=== PATIENT | female | born 1995 | race Two or more races ===

== ENCOUNTER 2019-01-05 15:29 | Emergency (ER) | payer SELFPAY ==
[2019-01-05 16:13] LABS: ABSOLUTE EOSINOPHILS # (AUTO) 0.1 10^3/uL (0.0-0.6); ABSOLUTE LYMPHOCYTES (AUTO) 1.8 10^3/uL (0.5-4.7); ABSOLUTE MONOCYTES (AUTO) 0.4 10^3/uL (0.1-1.4); ABSOLUTE NEUT (AUTO) 3.1 10^3/uL (1.7-8.2); BASOPHILS % (AUTO) 0.4 % (0-2); EOSINOPHILS % (AUTO) 2.3 % (0-6); HEMATOCRIT 40.5 % (36.0-47.0); HEMOGLOBIN 13.6 g/dL (12.0-15.5); LYMPHOCYTES % (AUTO) 32.7 % (13-45); MEAN CORPUSCULAR HEMOGLOBIN 28.3 pg (27.0-33.4); MEAN CORPUSCULAR HGB CONC 33.5 g/dL (32.0-36.0); MEAN CORPUSCULAR VOLUME 85 fl (80-97); MONOCYTES % (AUTO) 7.4 % (3-13); PLATELET COUNT 240 10^3/uL (150-450); RED BLOOD COUNT 4.79 10^6/uL (3.72-5.28); RED CELL DISTRIBUTION WIDTH 13.5 % (11.5-14.0); SEGMENTED NEUTROPHILS % (AUTO) 57.2 % (42-78); TOTAL CELLS COUNTED % (AUTO) 100 %; WHITE BLOOD COUNT 5.5 10^3/uL (4.0-10.5)
[2019-01-05 16:44] LABS: ALANINE AMINOTRANSFERASE 15 U/L (9-52); ALBUMIN 4.5 g/dL (3.5-5.0); ALKALINE PHOSPHATASE 83 U/L (38-126); ANION GAP 13 (5-19); ASPARTATE AMINO TRANSFERASE 15 U/L (14-36); BILIRUBIN,DIRECT 0.2 mg/dL (0.0-0.4); BILIRUBIN,TOTAL 0.5 mg/dL (0.2-1.3); BLOOD UREA NITROGEN 12 mg/dL (7-20); CALCIUM 9.3 mg/dL (8.4-10.2); CARBON DIOXIDE 24 mmol/L (22-30); CHLORIDE 107 mmol/L (98-107); CREATINE KINASE 45 U/L (30-135); GLUCOSE 118 mg/dL (75-110); POTASSIUM 3.7 mmol/L (3.6-5.0); SODIUM 143.5 mmol/L (137-145); TOTAL PROTEIN 7.7 g/dL (6.3-8.2)
[2019-01-05 16:57] LABS: CREATINE KINASE MB < 0.22 ng/mL (<4.55); TROPONIN I < 0.012 ng/mL
[2019-01-05 17:01] LABS: APPEARANCE,URINE CLEAR; BILIRUBIN,URINE NEGATIVE (NEGATIVE); COLOR,URINE STRAW; GLUCOSE, URINE NEGATIVE (NEGATIVE); KETONES,URINE NEGATIVE (NEGATIVE); LEUKOCYTE ESTERASE,URINE NEGATIVE (NEGATIVE); NITRITE,URINE NEGATIVE (NEGATIVE); PROTEIN,URINE NEGATIVE (NEGATIVE); URINE SPECIFIC GRAVITY 1.009; UROBILINOGEN,URINE NEGATIVE mg/dL (<2.0)
[2019-01-05 17:15] LABS: URINE AMPHETAMINES SCREEN NEGATIVE; URINE BARBITURATES SCREEN NEGATIVE; URINE BENZODIAZEPINES SCREEN NEGATIVE; URINE COCAINE SCREEN NEGATIVE; URINE MARIJUANA (THC) SCREEN NEGATIVE; URINE METHADONE SCREEN NEGATIVE; URINE PHENCYCLIDINE SCREEN NEGATIVE
--- NOTE | 2019-01-05 18:35 | ER Document Report ---
ED Medical Screen (RME) - General Chief Complaint: Abdominal Pain Stated Complaint: POSSIBLE SYNCOPE Time Seen by Provider: 01/05/19 18:09 Mode of Arrival: Medic Information source: Emergency Med Personnel Notes: Patient presents to the emergency department via EMS. Patient is primarily Niuean-speaking. Patient is very hesitant to answer questions. EMS reports patient was in a very hot house and they were given a report that she fell and hit her head. Questionable seizures because EMS noted she was incontinent of urine. RN at bedside reports she was not incontinent of urine patient does not answer question. Surekha is at the bedside I have greeted and performed a rapid initial assessment of this patient. A comprehensive ED assessment and evaluation of the patient, analysis of test results and completion of the medical decision making process will be conducted by additional ED providers. Dictation of this chart was performed using voice recognition software; therefore, there may be some unintended grammatical errors. TRAVEL OUTSIDE OF THE [place] IN LAST 30 DAYS: No - HPI Onset: Just prior to arrival - Related Data Allergies/Adverse Reactions: No Known Allergies Allergy (Verified 01/05/19 18:40) Physical Exam - Vital signs Vitals: Pulse Ox 100 01/05/19 15:41 Course - Vital Signs Vital signs: Temp Pulse Resp BP Pulse Ox 87 21 H 122/77 99 01/05/19 16:20 01/05/19 20:22 01/05/19 20:22 01/05/19 20:22 - Laboratory Result Diagrams: 01/05/19 15:55 01/05/19 15:55 Laboratory results interpreted by me: 01/05/19 15:55 Glucose 118 H
--- NOTE | 2019-01-05 20:01 | RADIOLOGY REPORT (SQ) ---
EXAM DESCRIPTION: CT HEAD WITHOUT COMPLETED DATE/TIME: 01/05/2019 7:49 pm REASON FOR STUDY: head injury COMPARISON: None. TECHNIQUE: Axial images acquired through the brain without intravenous contrast. Images reviewed wi th bone, brain and subdural windows. Images stored on PACS. All CT scanners at this facility use dose modulation, iterative reconstruction, and/or weight based d osing when appropriate to reduce radiation dose to as low as reasonably achievable (ALARA). [facility]: Dose Right [facility]: CareDose [facility]: Dose Right [facility]: Teradose 4D [facility]: Avinger RADIATION DOSE: CT Rad equipment meets quality standard of care and radiation dose reduction techniq ues were employed. CTDIvol: 53.2 mGy. DLP: 1070 mGy-cm. mGy. LIMITATIONS: None. FINDINGS: VENTRICLES: Normal size and contour. CEREBRUM: No masses. No hemorrhage. No midline shift. No evidence for acute infarction. Normal gra y/white matter differentiation. No areas of low density in the white matter. CEREBELLUM: No masses. No hemorrhage. No alteration of density. No evidence for acute infarction. EXTRAAXIAL SPACES: No fluid collections. No masses. ORBITS AND GLOBE: No intra- or extraconal masses. Normal contour of globe without masses. CALVARIUM: No fracture. PARANASAL SINUSES: No fluid or mucosal thickening. SOFT TISSUES: No mass or hematoma. OTHER: No other significant finding. IMPRESSION: No acute intracranial findings. EVIDENCE OF ACUTE STROKE: NO. COMMENT: Quality ID # [id number]: Final reports with documentation of one or more dose reduction techniques (e.g., Automated exposure control, adjustment of the mA and/or kV according to patient size, use of iterative reconstruction technique) TECHNICAL DOCUMENTATION: JOB ID: [id number] 2010 [employer]- All Rights Reserved Reading location - IP/workstation name: [email or web address]
--- NOTE | 2019-01-05 20:07 | EKG REPORT ---
SEVERITY:- BORDERLINE ECG - SINUS RHYTHM BORDERLINE T ABNORMALITIES, ANTERIOR LEADS : Confirmed by: Arely Cordero MD 05-Jan-2019 20:06:39
[2019-01-05] MEDS ORDERED: NORMAL SALINE 1000 ML 1,000 ML IV ONE (20:08)
[2019-01-05] MEDS ORDERED: ONDANSETRON HCL INJ/PF 4 MG/2 ML SDV IV ONE (20:08)
--- NOTE | 2019-01-05 20:08 | ER Document Report ---
ED General - General Chief Complaint: Abdominal Pain Stated Complaint: POSSIBLE SYNCOPE Time Seen by Provider: 01/05/19 18:09 Mode of Arrival: Medic Information source: Patient Notes: History is provided by the patient and the with the use of TONI [id number] This is a 23-year-old female with no significant medical problems that states that she has not felt very well for the last few days and was feeling weak and dizzy and the neighbor came over the house and they began to go to the doctors and she fainted. She does report some epigastric discomfort. Last normal menstrual period: December 18 Medicines: None No known drug allergies Past surgical history: None Family history: No history of early heart disease TRAVEL OUTSIDE OF THE [place] IN LAST 30 DAYS: No - HPI Onset: Last week Onset/Duration: Gradual Quality of pain: Dull Severity: Mild Pain Level: 1 Associated symptoms: Other - Epigastric pain, dizziness, weakness. denies: Chest pain, Fever, Shortness of breath Exacerbated by: Denies Relieved by: Denies Similar symptoms previously: No Recently seen / treated by doctor: No - Related Data Allergies/Adverse Reactions: No Known Allergies Allergy (Verified 01/05/19 18:40) Past Medical History - General Information source: Patient, Emergency Med Personnel Last Menstrual Period: History via official court interpreter - Social History Smoking Status: Never Smoker Cigarette use (# per day): No Chew tobacco use (# tins/day): No Frequency of alcohol use: None Drug Abuse: None Lives with: Family, Spouse/Significant other Family History: None Patient has suicidal ideation: No Patient has homicidal ideation: No - Medical History Medical History: Negative Renal/ Medical History: Denies: Hx Peritoneal Dialysis Surgical Hx: Negative Review of Systems - Review of Systems Constitutional: denies: Chills, Fever EENT: No symptoms reported Cardiovascular: See HPI Respiratory: No symptoms reported Gastrointestinal: See HPI Genitourinary: No symptoms reported Female Genitourinary: No symptoms reported Musculoskeletal: No symptoms reported Skin: No symptoms reported Hematologic/Lymphatic: No symptoms reported Neurological/Psychological: No symptoms reported Physical Exam - Vital signs Vitals: Pulse Ox 100 01/05/19 15:41 Notes: Physical exam: GENERAL: She is alert and oriented x3, her blood pressure is 114/73, pulse of 65, respiratory rate is 18 and unlabored, her oxygen saturation is 98% on room air. HEAD: Atraumatic, normocephalic. EYES: Pupils equal round and reactive to light, extraocular movements intact, sclera anicteric, conjunctiva are normal. ENT: TMs normal, nares patent, oropharynx clear without exudates. Moist mucous membranes. NECK: Normal range of motion, supple without obvious mass or JVD. LUNGS: Breath sounds clear to auscultation bilaterally and equal. No wheezes rales or rhonchi. HEART: Regular rate and rhythm without murmurs, rubs or gallops. ABDOMEN: Soft, normoactive bowel sounds. No tenderness to palpation. No guarding, no rebound. No masses appreciated. EXTREMITIES: Normal range of motion, no pitting or edema. No clubbing or cyanosis. NEUROLOGICAL: Cranial nerves II through XII grossly intact. Normal speech, moving all extremities. PSYCH: Normal mood, normal affect. SKIN: Warm, Dry, normal turgor, no rashes or lesions noted. Course - Re-evaluation Re-evalutation: 01/05/19 21:28 Patient given IV fluids, GI cocktail, IV nausea medicine. Head CT showed nothing acute. She was maintained on the monitor and it was a sinus rhythm the whole time and her oxygen saturation was 98%. Repeat exam: Patient denies any pain and states she feels better. I had Toni (Mark Landers) assist with interpretation of the results and recommendations. - Vital Signs Vital signs: Temp Pulse Resp BP Pulse Ox 98.0 F 87 21 H 122/77 99 01/05/19 21:00 01/05/19 16:20 01/05/19 20:22 01/05/19 20:22 01/05/19 20:22 - Laboratory Result Diagrams: 01/05/19 15:55 01/05/19 15:55 Laboratory results interpreted by me: 01/05/19 15:55 Glucose 118 H - Diagnostic Test Radiology reviewed: Image reviewed, Reports reviewed - CT of the head showed no acute process - EKG Interpretation by Me Rate: Normal Rhythm: NSR - EKG shows normal sinus rhythm with a ventricular rate of 92, no acute ST-T wave changes Discharge - Discharge Clinical Impression: Gastritis, Dehydration, Viral syndrome Condition: Stable Disposition: HOME, SELF-CARE Additional Instructions: Rest, drink plenty fluids (have Gatorade and half water). Simpson diet as tolerated. Take Pepcid as prescribed. To the emergency room for worsening pain, dizziness or weakness. Prescriptions: Famotidine [Pepcid 20 mg Tablet] 20 mg PO DAILY #12 tablet
[2019-01-05] MEDS ORDERED: LIDOCAINE 2% VISCOUS SOLN 20 ML UDCUP PO ONE (20:09)
[2019-01-05] MEDS ORDERED: METOCLOPRAMIDE HCL ORAL SOLN 10 MG/10 ML UDCUP PO ONE (20:09)
[2019-01-05] MEDS ORDERED: MAG HYDROX/AL HYDROX/SIMETH SUSP 30 ML UDCUP PO ONE (20:09)
[2019-01-05 21:28] VITALS: BP 100/81
== END 2019-01-05 21:28 | disposition home or self-care (01) ==
LOC: ER 15:29 → EDBD 15:29 → ER 21:28
DX: K29.70 Gastritis, unspecified, without bleeding (principal); E86.0 Dehydration; B34.9 Viral infection, unspecified; R53.1 Weakness; R55 Syncope and collapse; R10.13 Epigastric pain
CPT/HCPCS: 93005; 99284; 96361; 96374; 36415; 82553; 82962; 82550; 84703; 85025; 80053; 81001; 84484; 80307; 70450; 93010; J3490; J2405; J7030

== ENCOUNTER → 2019-03-10 | Outpatient (CLI) | payer SELFPAY ==
--- NOTE | 2019-03-10 14:07 | RADIOLOGY REPORT (SQ) ---
EXAM DESCRIPTION: U/S [id number] TRNABD 1GES W/ODOP COMPLETED DATE/TIME: 03/10/2019 1:57 pm REASON FOR STUDY: Z34.81 ENCOUNTER FOR SUPRVSN OF NORMAL , FIRST TRIMESTER Z34.82 ENCOUNTE R FOR SUPRVSN OF NORMAL , SECOND TRI COMPARISON: None. TECHNIQUE: Transabdominal static and realtime grayscale images acquired of the pelvis. Additional se lected spectral and color Doppler images recorded. All images stored on PACs. bHCG: Not available. CLINICAL DATES: Not Available. LIMITATIONS: None. FINDINGS: FETUS: Single Living intrauterine . ULTRASOUND EGA: 10 weeks 6 days. ULTRASOUND VIKTORIYA: 09/30/2019. EFW: Not applicable less than 20 weeks. CRL: 3.9 cm. FHR: 171 beats per minute. SURVEY: Too early to assess. AMNIOTIC FLUID: Adequate amount. PLACENTA: Not yet developed due to early gestation. SUBCHORIONIC BLEED: Yes. SIZE OF BLEED: 5.6 cm. UTERUS: No masses. No anomalies. CERVICAL LENGTH: 3.7 cm. Closed. RIGHT ADNEXA: Normal ovary with normal vascular flow. No adnexal free fluid. No adnexal masses. LEFT ADNEXA: Normal ovary with normal vascular flow. No adnexal free fluid. No adnexal masses. FREE FLUID: None. OTHER: No other significant finding. IMPRESSION: Viable 10 week 6 day intrauterine gestation. Hypoechoic collections surrounding the sac is consistent with subchorionic hemorrhage. This measures 5.6 cm. Trimester of : First - 0 to 13 weeks. TECHNICAL DOCUMENTATION: JOB ID: [id number] [employer]- All Rights Reserved rev Reading location - IP/workstation name: [facility]-
== END ==
LOC: RAD 13:15
PROVIDERS: ATTEND Midwife
DX: Z34.81 Encounter for supervision of other normal pregnancy, first trimester (principal)
CPT/HCPCS: 76801

== ENCOUNTER → 2019-05-11 | Outpatient (CLI) | payer SELFPAY ==
--- NOTE | 2019-05-11 16:09 | RADIOLOGY REPORT (SQ) ---
EXAM DESCRIPTION: U/S OB 14+ TRNABD 1GES W/O DOP COMPLETED DATE/TIME: 05/11/2019 2:50 pm REASON FOR STUDY: Z34.82 ENCOUNTER FOR SUPRVSN OF NORMAL , SECOND TRIMESTER Z34.82 ENCOUNT ER FOR SUPRVSN OF NORMAL , SECOND TRI COMPARISON: None. TECHNIQUE: Static and Dynamic grayscale imaging performed of gravid uterus using transabdominal appr oach. Additional selected color Doppler and spectral images recorded. All stored on PACS. LIMITATIONS: None. FINDINGS: FETUSES SEEN:1 EGA: 19 weeks 6 days Calculated using BPD,FL,HC,AC documented on images. Concordant with clinical [place]. VIKTORIYA: 09/29/2019. EFW: 324 +/- 48 grams LVP: 5.3 cm. PLACENTA: Fundal. PRESENTATION: Breech. ANATOMY: HEART RATE: 163 beats per minute. FOUR CHAMBER HEART: Visualized. THREE VESSEL CORD: Yes. CORD INSERTION: Visualized. KIDNEYS AND BLADDER: Visualized. Appear normal. STOMACH: Visualized. Appears normal. SPINE: Visualize. Appears normal. BRAIN AND LATERAL VENTRICLES: Visualized. Appear normal. OTHER: No other finding. MATERNAL ADNEXA: Ovaries appear normal. THERE IS NO ADNEXAL MASS. CERVICAL LENGTH: 4 cm. Closed. OTHER: No other finding. IMPRESSION: LIVING INTRAUTERINE . ESTIMATED GESTATIONAL AGE 19 weeks 5 days based on LMP NO VISUALIZED ANOMALIES. Trimester of : Second trimester - 13 weeks 1 day to 27 weeks 6 days. TECHNICAL DOCUMENTATION: JOB ID: [id number] [employer]- All Rights Reserved Reading location - IP/workstation name: [email or web address]
== END ==
LOC: RAD 14:10
PROVIDERS: ATTEND Midwife
DX: Z34.82 Encounter for supervision of other normal pregnancy, second trimester (principal)
CPT/HCPCS: 76805

== ENCOUNTER 2019-09-21 13:13 | Inpatient (IN) | payer SELFPAY ==
[2019-09-21] MEDS ORDERED: OXYTOCIN 10 UNIT/ML VIAL ONE (13:43)
[2019-09-21] MEDS ORDERED: PENICILLIN G POTASSIUM 5,000,000 UNIT in DEXTROSE 5%-WATER 100 ML IV ONE (13:43)
[2019-09-21] MEDS ORDERED: RINGERS SOLUTION,LACTATED 1,000 ML IV PRN (13:43)
[2019-09-21] MEDS ORDERED: MISOPROSTOL 0.2 MG TABLET ONE (13:43)
[2019-09-21] MEDS ORDERED: OXYTOCIN/NORMAL SALINE 0 UNIT/0 ML RTUINJ ONE (13:43)
[2019-09-21] MEDS ORDERED: LIDOCAINE 1% INJ-PF (10 MG/ML) 30 ML SDV ONE (13:43)
[2019-09-21] MEDS ORDERED: RINGERS SOLUTION,LACTATED 1,000 ML IV ONE (13:43)
[2019-09-21] MEDS ORDERED: OXYTOCIN/NORMAL SALINE 20 UNIT/1,000 ML RTUINJ IV PRN (14:03)
[2019-09-21] MEDS ORDERED: MEASLES,MUMPS&RUBELLA VACC/PF 0.5 ML VIAL SUBCUT PRN (14:03)
[2019-09-21] MEDS ORDERED: BENZOCAINE/MENTHOL AEROSOL SPRAY 56 ML TOP PRN (14:03)
[2019-09-21] MEDS ORDERED: DIBUCAINE 1% OINTMENT 28 GM TP PRN (14:03)
[2019-09-21] MEDS ORDERED: ZOLPIDEM TARTRATE 5 MG TABLET PO PRN (14:03)
[2019-09-21] MEDS ORDERED: DIPH/PERTUSS(ACELL)/TETANUS VAC/PF 0.5 ML SYR (>=10YO) IM PRN (14:03)
[2019-09-21] MEDS ORDERED: ACETAMINOPHEN WITH CODEINE #3 TABLET PO PRN (14:03)
--- NOTE | 2019-09-21 14:07 | Admission Physical ---
Datetime Report Generated by CPN: 09/21/2019 14:07 CURRENT ADMISSION Chief Complaint: Uterine Contractions; Suspected Ruptured Membranes Admit Impression : Term, Intrauterine ; Active Labor; Ruptured Membranes Admit Plan: Admit to Unit; Initiate Labor Protocol ALLERGIES Medication Allergies: No Known Allergies (01/05/2019) OBSTETRICAL HISTORY EDC: 09/26/2019 00:00 : 2 Para: 1 Term: 1 : 0 SAB: 0 IAB: 0 Livin Obstetrical History Comments: G1- G2- Current PHYSICAL EXAM General: Normal HEENT: Normal Neurologic: Normal Thyroid: Normal Heart: Normal Lungs: Normal Breast: Normal Back: Normal Abdomen: Normal Genitourinary Exam: Normal Extremities: Normal DTRs: Normal Pelvic Type: Adequate Vital Signs: Reviewed VAGINAL EXAM Dilatation: 10 Effacement: 100 Station: 3 Contraction Comments: every 2 minutes MEMBRANES Pooling: Positive Membranes: Ruptured FETUS A EGA: 39.2 Monitoring: External US FHR- Baseline: 135 Variability: Moderate 6-25bpm Accelerations: 15X15 Decelerations: None FHR Category: Category I Presentation: Vertex Admit Comment: 23 yo at 39.2 wks EGA in active labor with SROM on arrival -Admit to LDR _IVFs and NPO -CEFM and toco -GBS unknown: PCN IV ordered -Desires natural labor -Hx one prior . ANticipate INFORMED CONSENT Informed Consent Obtained: Vaginal Delivery; Risks, Benefits and Alternatives Discussed Signature: with User ID: Radha : with User ID: Radha
[2019-09-21] MEDS ORDERED: IBUPROFEN 800 MG TABLET ONE (14:12)
[2019-09-21] MEDS: IBUPROFEN 800 MG TABLET PO SCH ×2 (14:15→22:03)
[2019-09-21 14:35] LABS: APPEARANCE,URINE SLIGHTLY-CLOUDY; BILIRUBIN,URINE NEGATIVE (NEGATIVE); COLOR,URINE YELLOW; GLUCOSE, URINE NEGATIVE (NEGATIVE); KETONES,URINE NEGATIVE (NEGATIVE); LEUKOCYTE ESTERASE,URINE TRACE (NEGATIVE); NITRITE,URINE NEGATIVE (NEGATIVE); PROTEIN,URINE 100 mg/dL (NEGATIVE); URINE SPECIFIC GRAVITY 1.014; UROBILINOGEN,URINE NEGATIVE mg/dL (<2.0)
[2019-09-21 14:52] LABS: URINE AMPHETAMINES SCREEN NEGATIVE; URINE BARBITURATES SCREEN NEGATIVE; URINE BENZODIAZEPINES SCREEN NEGATIVE; URINE COCAINE SCREEN NEGATIVE; URINE MARIJUANA (THC) SCREEN NEGATIVE; URINE METHADONE SCREEN NEGATIVE; URINE PHENCYCLIDINE SCREEN NEGATIVE
[2019-09-21 15:16] LABS: ABSOLUTE LYMPHOCYTES (AUTO) 0.8 10^3/uL (0.5-4.7); ABSOLUTE MONOCYTES (AUTO) 0.3 10^3/uL (0.1-1.4); ABSOLUTE NEUT (AUTO) 7.2 10^3/uL (1.7-8.2); BASOPHILS % (AUTO) 0.5 % (0-2); EOSINOPHILS % (AUTO) 0.2 % (0-6); HEMATOCRIT 33.2 % (36.0-47.0); HEMOGLOBIN 10.8 g/dL (12.0-15.5); LYMPHOCYTES % (AUTO) 9.7 % (13-45); MEAN CORPUSCULAR HEMOGLOBIN 26.7 pg (27.0-33.4); MEAN CORPUSCULAR HGB CONC 32.6 g/dL (32.0-36.0); MEAN CORPUSCULAR VOLUME 82 fl (80-97); MONOCYTES % (AUTO) 4.1 % (3-13); PLATELET COUNT 188 10^3/uL (150-450); RED BLOOD COUNT 4.05 10^6/uL (3.72-5.28); RED CELL DISTRIBUTION WIDTH 16.4 % (11.5-14.0); SEGMENTED NEUTROPHILS % (AUTO) 85.5 % (42-78); TOTAL CELLS COUNTED % (AUTO) 100 %; WHITE BLOOD COUNT 8.5 10^3/uL (4.0-10.5)
[2019-09-21] MEDS ORDERED: PENICILLIN G POTASSIUM 2,500,000 UNIT in DEXTROSE 5%-WATER 50 ML IV SCH (17:44)
[2019-09-21] MEDS ORDERED: INFLUENZA QUAD (6MOS+) 2019-20 VAC 0.5 ML SYR IM ONE (18:18)
[2019-09-21] MEDS: DOCUSATE SODIUM 100 MG CAPSULE PO SCH (18:43)
[2019-09-22] MEDS: IBUPROFEN 800 MG TABLET PO SCH ×3 (05:08→21:57)
[2019-09-22 08:19] LABS: HEMATOCRIT 28.6 % (36.0-47.0); HEMOGLOBIN 9.5 g/dL (12.0-15.5); MEAN CORPUSCULAR HEMOGLOBIN 27.3 pg (27.0-33.4); MEAN CORPUSCULAR HGB CONC 33.1 g/dL (32.0-36.0); MEAN CORPUSCULAR VOLUME 82 fl (80-97); PLATELET COUNT 167 10^3/uL (150-450); RED BLOOD COUNT 3.46 10^6/uL (3.72-5.28); RED CELL DISTRIBUTION WIDTH 16.9 % (11.5-14.0)
--- NOTE | 2019-09-22 08:39 | PDOC PROGRESS REPORT ---
Subjective-OB Progress Note for:: 09/22/19 Subjective: Ready for discharge but plans to nest as baby under bili lights. Physical Exam (OB) Vital Signs: Temp Pulse Resp BP Pulse Ox 97.8 F 59 L 16 127/58 H 99 09/22/19 07:47 09/22/19 07:47 09/22/19 07:47 09/22/19 07:47 09/22/19 07:47 Intake & Output 09/21/19 09/22/19 09/23/19 06:59 06:59 06:59 Weight 76.4 kg - PIH/Pre-Eclampsia DTR's: 1 + Clonus: Negative Headache: Absent Epigastric Pain: No Visual Changes: No - Lochia Lochia Amount: Small 10-25 ml Lochia Color: Rubra/Red - Abdomen Description: Soft, Round Hernia Present: No Bowel Sounds: Normoactive Flatus Presence: Present Stool: Yes Fundal Description: Firm, Midline Fundal Height: u/u - u/2 Objective-Diagnostic Laboratory: 09/22/19 07:30 09/21/19 09/21/19 09/21/19 13:29 15:00 15:00 WBC 8.5 RBC 4.05 Hgb 10.8 L Hct 33.2 L MCV 82 MCH 26.7 L MCHC 32.6 RDW 16.4 H Plt Count 188 Seg Neutrophils % 85.5 H Urine Color YELLOW Urine Appearance SLIGHTLY-CLOUDY Urine pH 7.0 Ur Specific [place] 1.014 Urine Protein 100 H Urine Glucose (UA) NEGATIVE Urine Ketones NEGATIVE Urine Blood MODERATE H Urine Nitrite NEGATIVE Ur Leukocyte Esterase TRACE H Blood Type O POSITIVE Antibody Screen NEGATIVE 09/22/19 07:30 WBC 7.0 RBC 3.46 L Hgb 9.5 L Hct 28.6 L MCV 82 MCH 27.3 MCHC 33.1 RDW 16.9 H Plt Count 167 Seg Neutrophils % Urine Color Urine Appearance Urine pH Ur Specific [place] Urine Protein Urine Glucose (UA) Urine Ketones Urine Blood Urine Nitrite Ur Leukocyte Esterase Blood Type Antibody Screen
--- NOTE | 2019-09-22 08:48 | PDOC DISCHARGE SUMMARY ---
Impression - Admit/DC Date/PCP Admission Date/Primary Care Provider: 09/21/19 13:46 JACKELYN FRYE CNM Discharge Date: 09/22/19 - Discharge Diagnosis (1) Anemia Is this a current diagnosis for this admission?: Yes (2) Insufficient antepartum care Is this a current diagnosis for this admission?: Yes (3) (normal spontaneous vaginal delivery) Is this a current diagnosis for this admission?: Yes (5) Is this a current diagnosis for this admission?: Yes - Additional Information Resuscitation Status: Full Code Discharge Diet: Regular Discharge Activity: Activity As Tolerated, Balance Activity w/Rest, Pelvic Rest, Slowly Increase Activity, No tub bath Referrals: JACKELYN FRYE CNM [Primary Care Provider] - JUAN PABLO HART DO [ACTIVE STAFF] - Prescriptions: Ferrous Sulfate [Feosol 325 mg Tablet] 325 mg PO BID #60 tablet Home Medications: Vit No.130/Iron/Folic [ Tablet] 1 each PO DAILY 09/21/19 Ferrous Sulfate [Feosol 325 mg Tablet] 325 mg PO BID #60 tablet 09/22/19 HPI Gestational Age: 41.1 wks Reason(s) for Admission: Induction of Labor Procedures: Ultrasound Intrapartum Procedure(s): Spontaneous Vaginal Delivery Results Laboratory Results: WBC 7.0 10^3/uL (4.0-10.5) 09/22/19 07:30 RBC 3.46 10^6/uL (3.72-5.28) L 09/22/19 07:30 Hgb 9.5 g/dL (12.0-15.5) L 09/22/19 07:30 Hct 28.6 % (36.0-47.0) L 09/22/19 07:30 MCV 82 fl (80-97) 09/22/19 07:30 MCH 27.3 pg (27.0-33.4) 09/22/19 07:30 MCHC 33.1 g/dL (32.0-36.0) 09/22/19 07:30 RDW 16.9 % (11.5-14.0) H 09/22/19 07:30 Plt Count 167 10^3/uL (150-450) 09/22/19 07:30 Lymph % (Auto) 9.7 % (13-45) L 09/21/19 15:00 [place] % (Auto) 4.1 % (3-13) 09/21/19 15:00 Eos % (Auto) 0.2 % (0-6) 09/21/19 15:00 Baso % (Auto) 0.5 % (0-2) 09/21/19 15:00 Absolute Neuts (auto) 7.2 10^3/uL (1.7-8.2) 09/21/19 15:00 Absolute Lymphs (auto) 0.8 10^3/uL (0.5-4.7) 09/21/19 15:00 Absolute Monos (auto) 0.3 10^3/uL (0.1-1.4) 09/21/19 15:00 Absolute Eos (auto) 0.0 10^3/uL (0.0-0.6) 09/21/19 15:00 Absolute Basos (auto) 0.0 10^3/uL (0.0-0.2) 09/21/19 15:00 Seg Neutrophils % 85.5 % (42-78) H 09/21/19 15:00 Urine Color YELLOW 09/21/19 13:29 Urine Appearance SLIGHTLY-CLOUDY 09/21/19 13:29 Urine pH 7.0 (5.0-9.0) 09/21/19 13:29 Ur Specific [place] 1.014 09/21/19 13:29 Urine Protein 100 mg/dL (NEGATIVE) H 09/21/19 13:29 Urine Glucose (UA) NEGATIVE mg/dL (NEGATIVE) 09/21/19 13:29 Urine Ketones NEGATIVE mg/dL (NEGATIVE) 09/21/19 13:29 Urine Blood MODERATE (NEGATIVE) H 09/21/19 13:29 Urine Nitrite NEGATIVE (NEGATIVE) 09/21/19 13:29 Urine Bilirubin NEGATIVE (NEGATIVE) 09/21/19 13:29 Urine Urobilinogen NEGATIVE mg/dL (<2.0) 09/21/19 13:29 Ur Leukocyte Esterase TRACE (NEGATIVE) H 09/21/19 13:29 Urine Ascorbic Acid NEGATIVE (NEGATIVE) 09/21/19 13:29 Urine Opiates Screen NEGATIVE 09/21/19 13:29 Urine Methadone Screen NEGATIVE 09/21/19 13:29 Ur Barbiturates Screen NEGATIVE 09/21/19 13:29 Ur Phencyclidine Scrn NEGATIVE 09/21/19 13:29 Ur Amphetamines Screen NEGATIVE 09/21/19 13:29 U Benzodiazepines Scrn NEGATIVE 09/21/19 13:29 Urine Cocaine Screen NEGATIVE 09/21/19 13:29 U Marijuana (THC) Screen NEGATIVE 09/21/19 13:29 Blood Type O POSITIVE 09/21/19 15:00 Antibody Screen NEGATIVE 09/21/19 15:00 Plan Plan of Treatment: Follow up at [facility] in 4 wks or prn. Pelvic rest x 4-6 wks. Time Spent: Less than 30 Minutes
--- NOTE | 2019-09-22 08:57 | PDOC PROGRESS REPORT ---
Subjective-OB Progress Note for:: 09/22/19 Physical Exam (OB) Vital Signs: Temp Pulse Resp BP Pulse Ox 97.8 F 59 L 16 127/58 H 99 09/22/19 07:47 09/22/19 07:47 09/22/19 07:47 09/22/19 07:47 09/22/19 07:47 Intake & Output 09/21/19 09/22/19 09/23/19 06:59 06:59 06:59 Weight 76.4 kg - PIH/Pre-Eclampsia DTR's: 1 + Clonus: Negative Headache: Absent Epigastric Pain: No Visual Changes: No - Lochia Lochia Amount: Small 10-25 ml Lochia Color: Rubra/Red - Abdomen Description: Soft, Round Hernia Present: No Bowel Sounds: Normoactive Flatus Presence: Present Stool: No Fundal Description: Firm, Midline Fundal Height: u/u - u/2 Objective-Diagnostic Laboratory: 09/22/19 07:30 09/21/19 09/21/19 09/21/19 13:29 15:00 15:00 WBC 8.5 RBC 4.05 Hgb 10.8 L Hct 33.2 L MCV 82 MCH 26.7 L MCHC 32.6 RDW 16.4 H Plt Count 188 Seg Neutrophils % 85.5 H Urine Color YELLOW Urine Appearance SLIGHTLY-CLOUDY Urine pH 7.0 Ur Specific [place] 1.014 Urine Protein 100 H Urine Glucose (UA) NEGATIVE Urine Ketones NEGATIVE Urine Blood MODERATE H Urine Nitrite NEGATIVE Ur Leukocyte Esterase TRACE H Blood Type O POSITIVE Antibody Screen NEGATIVE 09/22/19 07:30 WBC 7.0 RBC 3.46 L Hgb 9.5 L Hct 28.6 L MCV 82 MCH 27.3 MCHC 33.1 RDW 16.9 H Plt Count 167 Seg Neutrophils % Urine Color Urine Appearance Urine pH Ur Specific [place] Urine Protein Urine Glucose (UA) Urine Ketones Urine Blood Urine Nitrite Ur Leukocyte Esterase Blood Type Antibody Screen Assessment and Plan(PN) - Assessment and Plan (1) Anemia Is this a current diagnosis for this admission?: Yes (2) Insufficient antepartum care Is this a current diagnosis for this admission?: Yes (3) (normal spontaneous vaginal delivery) Is this a current diagnosis for this admission?: Yes (5) Is this a current diagnosis for this admission?: Yes
[2019-09-22] MEDS: FERROUS SULFATE 325 MG TABLET PO SCH (09:11)
[2019-09-22] MEDS: PRENATAL VITAMIN W DHA CAPSULE PO SCH (09:11)
[2019-09-22] MEDS: SENNOSIDES/DOCUSATE 8.6-50 MG 1 EACH TABLET PO SCH (09:11)
[2019-09-22] MEDS: DOCUSATE SODIUM 100 MG CAPSULE PO SCH ×2 (09:12→17:35)
[2019-09-23] MEDS: IBUPROFEN 800 MG TABLET PO SCH (05:11)
--- NOTE | 2019-09-23 10:19 | PDOC DISCHARGE SUMMARY ---
Impression - Admit/DC Date/PCP Admission Date/Primary Care Provider: 09/21/19 13:46 JACKELYN FRYE CNM Discharge Date: 09/23/19 - Discharge Diagnosis (1) Anemia Is this a current diagnosis for this admission?: Yes (2) Insufficient antepartum care Is this a current diagnosis for this admission?: Yes (3) (normal spontaneous vaginal delivery) Is this a current diagnosis for this admission?: Yes (4) Post-dates , delivered, current hospitalization Is this a current diagnosis for this admission?: Yes - Additional Information Resuscitation Status: Full Code Discharge Diet: Regular Discharge Activity: Activity As Tolerated, Balance Activity w/Rest, Pelvic Rest, Slowly Increase Activity, No tub bath Referrals: [facility] [Provider Group] Prescriptions: Ferrous Sulfate [Feosol 325 mg Tablet] 325 mg PO BID #60 tablet Home Medications: Vit No.130/Iron/Folic [ Tablet] 1 each PO DAILY 09/21/19 Ferrous Sulfate [Feosol 325 mg Tablet] 325 mg PO BID #60 tablet 09/22/19 Results Laboratory Results: WBC 7.0 10^3/uL (4.0-10.5) 09/22/19 07:30 RBC 3.46 10^6/uL (3.72-5.28) L 09/22/19 07:30 Hgb 9.5 g/dL (12.0-15.5) L 09/22/19 07:30 Hct 28.6 % (36.0-47.0) L 09/22/19 07:30 MCV 82 fl (80-97) 09/22/19 07:30 MCH 27.3 pg (27.0-33.4) 09/22/19 07:30 MCHC 33.1 g/dL (32.0-36.0) 09/22/19 07:30 RDW 16.9 % (11.5-14.0) H 09/22/19 07:30 Plt Count 167 10^3/uL (150-450) 09/22/19 07:30 Lymph % (Auto) 9.7 % (13-45) L 09/21/19 15:00 [place] % (Auto) 4.1 % (3-13) 09/21/19 15:00 Eos % (Auto) 0.2 % (0-6) 09/21/19 15:00 Baso % (Auto) 0.5 % (0-2) 09/21/19 15:00 Absolute Neuts (auto) 7.2 10^3/uL (1.7-8.2) 09/21/19 15:00 Absolute Lymphs (auto) 0.8 10^3/uL (0.5-4.7) 09/21/19 15:00 Absolute Monos (auto) 0.3 10^3/uL (0.1-1.4) 09/21/19 15:00 Absolute Eos (auto) 0.0 10^3/uL (0.0-0.6) 09/21/19 15:00 Absolute Basos (auto) 0.0 10^3/uL (0.0-0.2) 09/21/19 15:00 Seg Neutrophils % 85.5 % (42-78) H 09/21/19 15:00 Urine Color YELLOW 09/21/19 13:29 Urine Appearance SLIGHTLY-CLOUDY 09/21/19 13:29 Urine pH 7.0 (5.0-9.0) 09/21/19 13:29 Ur Specific [place] 1.014 09/21/19 13:29 Urine Protein 100 mg/dL (NEGATIVE) H 09/21/19 13:29 Urine Glucose (UA) NEGATIVE mg/dL (NEGATIVE) 09/21/19 13:29 Urine Ketones NEGATIVE mg/dL (NEGATIVE) 09/21/19 13:29 Urine Blood MODERATE (NEGATIVE) H 09/21/19 13:29 Urine Nitrite NEGATIVE (NEGATIVE) 09/21/19 13:29 Urine Bilirubin NEGATIVE (NEGATIVE) 09/21/19 13:29 Urine Urobilinogen NEGATIVE mg/dL (<2.0) 09/21/19 13:29 Ur Leukocyte Esterase TRACE (NEGATIVE) H 09/21/19 13:29 Urine Ascorbic Acid NEGATIVE (NEGATIVE) 09/21/19 13:29 Urine Opiates Screen NEGATIVE 09/21/19 13:29 Urine Methadone Screen NEGATIVE 09/21/19 13:29 Ur Barbiturates Screen NEGATIVE 09/21/19 13:29 Ur Phencyclidine Scrn NEGATIVE 09/21/19 13:29 Ur Amphetamines Screen NEGATIVE 09/21/19 13:29 U Benzodiazepines Scrn NEGATIVE 01/22/20 13:29 Urine Cocaine Screen NEGATIVE 09/21/19 13:29 U Marijuana (THC) Screen NEGATIVE 09/21/19 13:29 RPR NONREACTIVE (NONREACTIVE) 09/21/19 15:00 Blood Type O POSITIVE 09/21/19 15:00 Antibody Screen NEGATIVE 09/21/19 15:00 Plan Plan of Treatment: Follow up at [facility] in 4 wks or prn. Pelvic rest x 4-6 wks.
[2019-09-23] MEDS: PRENATAL VITAMIN W DHA CAPSULE PO SCH (10:30)
[2019-09-23] MEDS: SENNOSIDES/DOCUSATE 8.6-50 MG 1 EACH TABLET PO SCH (10:30)
[2019-09-23] MEDS: DOCUSATE SODIUM 100 MG CAPSULE PO SCH (10:30)
[2019-09-23] MEDS: FERROUS SULFATE 325 MG TABLET PO SCH (10:30)
[2019-09-23 11:41] VITALS: BP 120/63
--- NOTE | 2019-09-27 11:58 | Delivery Summary ---
Del Sum A-C Datetime Report Generated by CPN: 09/27/2019 11:57 DELIVERY PERSONNEL DELIVERY PERSONNEL: [id number] Nurse Tender Coordinator Certified:: Sujatha Gonsales CNM Labor and Delivery Nurse:: Shea Barbour RNglobe tester Nurse:: Juhi Santos RN Nursery Nurse:: Paulina Jimenez RN Nursery Nurse:: Mee GONZALEZ RN [employer] Manager/MARKETING PROJECT LEAD: Selam Carroll, ST MATERNAL INFORMATION Delivery Anesthesia: None (Annotations: Data stored by N on behalf of user) Delivery Anesthesia: None Medications After Delivery: Cytotec 200mcg Per Rectum/Vagina; Other-Please Comment Meds After Delivery Comment: Cytotec 200mcg SL Pitocin 20mu IM Delivery QBL: 200 Maternal Complications: None Provider Comments: Called to room for imminent delivery. SROM w/ clear fluid, GBS unknown, Pt c/o urge to push. VE C/0. of VMI, delivered OA then rotateted to MARY. Vigorous and crying, placed on pts abdoman in stable condition. Cord cut and clamped after one minute. Cord blood obtained. Placenat S/C/I. FF, IM Pitocin and SL Cytotec 200 mcg given. No IV access at delivery. Apgars 7,9. QBL 200 ml. Perineum intact. Mother and baby in stable condition, skin to skin. Attending MD is Dr Sherwood LABOR SUMMARY EDC: 09/26/2019 00:00 No. Babies in Womb: 1 No. Babies in Womb: 1 Attempted: No Labor Anesthesia: None LABOR INFORMATION Reason for Induction: Not Applicable Onset of Labor: 09/21/2019 09:00 Complete Dilatation: 09/21/2019 13:39 Oxytocin: N/A Group B Beta Strep: neg (Annotations: Data stored by [facility] on behalf of user) Antibiotics # of Doses: 0 Steroids Given: None Reason Steroids Not Administered: Not Applicable MEMBRANES Membranes Rupture Method: Spontaneous Rupture of Membranes: 09/21/2019 13:39 Length of Rupture (hr): 0.22 Amniotic Fluid Color: Clear Amniotic Fluid Amount: Large Amniotic Fluid Odor: Normal STAGES OF LABOR Stage 1 hr: 4 Stage 1 min: 39 Stage 2 hr: 0 Stage 2 min: 13 Stage 3 hr: 0 Stage 3 min: 3 Total Time in Labor hr: 4 Total Time in Labor min: 55 VAGINAL DELIVERY Episiotomy: None Laceration #1: None Laceration Extension #1: N/A Laceration Repair: Not Applicable Sponge Count Correct: N/A Sharps Count Correct: N/A CSECTION DELIVERY Primary Indication: N/A Secondary Indication: N/A CSection Incidence: N/A Labor: N/A Elective: N/A CSection Incision: N/A BABY A INFORMATION Infant Delivery Date/Time: 09/21/2019 13:52 Method of Delivery: Vaginal Born in Route : No : N/A Forceps: N/A Vacuum Extraction: N/A Shoulder Dystocia : No PRESENTATION/POSITION BABY A Presentation: Cephalic Cephalic Presentation: Vertex Vertex Position: Left Occipital Anterior Breech Presentation: N/A PLACENTA INFORMATION BABY A Placenta Delivery Time : 09/21/2019 13:55 Placenta Method of Delivery: Spontaneous Placenta Method of Delivery: Spontaneous Placenta Status: Delivered SCORES BABY A Heart Rate 1 min: >100 bpm Resp Effort 1 min: Slow, Irregular Reflex Irritability 1 min: Cough or Sneeze or Pulls Away Muscle Tone 1 min: Active Motion Color 1 min: Blue/Pale Resuscitation Effort 1 min: Tactile Stimulation SCORE 1 MIN: 7 Heart Rate 5 min: >100 bpm Resp Effort 5 min: Good Cry Reflex Irritability 5 min: Cough or Sneeze or Pulls Away Muscle Tone 5 min: Active Motion Color 5 min: Body [place], Extremities Blue Resuscitation Effort 5 min: N/A SCORE 5 MIN: 9 INFORMATION BABY A Gestational Age at Delivery: 39.2 Gestational Status: Full Term- 39- 40.6 Weeks Infant Outcome : Liveborn Infant Condition : Stable Infant Sex: Male IDENTIFICATION BABY A Infant Verification Date/Time: 09/21/2019 14:04 ID Band Number: [id number] Mother's Name Verified: Yes Infant RN Verifying Infant: M.Tom RN Additional Verifying Personnel: S. Brown MARKETING PROJECT LEAD II WEIGHT/LENGTH BABY A Infant Birthweight (gm): 3778 Weight (lb): 8 Weight (oz): 5 Length (in): 20.00 Infant Length (cm): 50.80 CORD INFORMATION BABY A No. Cord Vessels: 3 Nuchal Cord : N/A Cord Blood Taken: N/A Suction: None ASSESSMENT BABY A Skin to Skin: Yes BABY B INFORMATION : N/A SIGNATURES Assignment: Brianda Sherwodo MD Signature: with User ID: Grupo : with User ID: [id number]
== END 2019-09-23 12:45 | disposition home or self-care (01) | DRG 807 ==
LOC: LC 13:13 → LR 13:46 → 2S 17:35
PROVIDERS: ADMIT Obstetrics & Gynecology; ATTEND Obstetrics & Gynecology
PROC: 10E0XZZ Delivery of Products of Conception, External Approach (ICD-10-PCS; principal; 2019-09-21)
DX: O62.3 Precipitate labor (principal); Z37.0 Single live birth; Z3A.39 39 weeks gestation of pregnancy
CPT/HCPCS: 36415; 80307; 81005; 85025; 85027; 86592; 86850; 86900; 86901; J2590; J3490